=== PATIENT | female | born 1990 | race Caucasian/White ===

== ENCOUNTER 2017-01-09 09:40 | Emergency (ER) | payer BC ==
[2017-01-09 09:49] VITALS: BP 109/65
[2017-01-09] MEDS ORDERED: predniSONE TAB* 20 MG PO ONE (10:04)
--- NOTE | 2017-01-09 10:44 | UC ---
Throat Pain/Nasal Lew HPI - HPI Summary HPI Summary: pt presents with c/o sore throat, fever and "swelling in throat" X 2-3 days. - History of Current Complaint Chief Complaint: UCEar Stated Complaint: EAR PAIN Time Seen by Provider: 01/09/17 09:46 Hx Obtained From: Patient Hx Last Menstrual Period: mirena ?: No Onset/Duration: Gradual Onset, Lasting Days Severity: Moderate Cough: None Associated Signs & Symptoms: Positive: Dysphagia Related History: Seasonal Allergies - Epiglottits Risk Factors Epiglottis Risk Factors: Negative - Allergies/Home Medications Allergies/Adverse Reactions: Allergies Allergy/AdvReac Type Severity Reaction Status Date / Time Oxycodone [From Percocet] Allergy Severe THROAT Verified 11/04/15 10:17 SWELLING PMH/Surg Hx/FS Hx/Imm Hx Previously Healthy: Yes - Surgical History Surgical History: None - Family History Known Family History: Positive: Other - positive FMH for sore throat - Social History Alcohol Use: Occasionally Substance Use Type: None Smoking Status (MU): Never Smoked Tobacco - Immunization History Most Recent Tetanus Shot: UNKNOWN Review of Systems Constitutional: Fever, Chills Skin: Negative Eyes: Negative ENT: Sore Throat Respiratory: Negative Cardiovascular: Negative Gastrointestinal: Negative Genitourinary: Negative Motor: Negative Neurovascular: Negative Musculoskeletal: Negative Neurological: Negative Psychological: Negative All Other Systems Reviewed And Are Negative: Yes Physical Exam Triage Information Reviewed: Yes Appearance: Well-Appearing Vital Signs: Initial Vital Signs Temp 98.8 F 01/09/17 09:47 Pulse 100 01/09/17 09:47 Resp 16 01/09/17 09:47 BP 109/65 01/09/17 09:47 Pulse Ox 100 01/09/17 09:47 Eye Exam: Normal ENT Exam: Other ENT: Positive: Pharyngeal erythema, Tonsillar swelling Neck exam: Normal Respiratory Exam: Normal Cardiovascular Exam: Normal Musculoskeletal Exam: Normal Neurological Exam: Normal Psychological Exam: Normal Skin Exam: Normal Throat Pain/Nasal Course/Dx - Differential Dx/Diagnosis Differential Diagnosis/HQI/PQRI: Pharyngitis, Tonsillitis Provider Diagnoses: tonsillitis Discharge - Discharge Plan Condition: Stable Disposition: HOME Prescriptions: Cephalexin CAP* [Keflex 500 CAP*] 500 mg PO TID #30 cap methylPREDNISolone TAB* [Medrol TAB*] 4 - 8 mg PO .SEE LEE #1 lee Patient Education Materials: Tonsillitis (ED) Referrals: Monica Castillo MD [Primary Care Provider] - If Needed
== END 2017-01-09 10:46 | disposition home or self-care (01) ==
LOC: UCCORT 09:40
DX: J03.90 Acute tonsillitis, unspecified (principal); Z88.5 Allergy status to narcotic agent
CPT/HCPCS: 99212; G0463; J7512